=== PATIENT | female | born 1970 | race Caucasian/White ===

== ENCOUNTER 2018-07-15 11:09 | Inpatient (IN) | payer MEDICAID, OTHER ==
[~2018-07-15] VITALS: Ht 170.2 cm; Wt 84.4 kg
[2018-07-15] MEDS ORDERED: MULT-1203 PO (11:29)
[2018-07-15] MEDS ORDERED: TOPI25 PO (11:29)
[2018-07-15] MEDS ORDERED: LEVO75 PO (11:29)
[2018-07-15] MEDS ORDERED: FLUO-191 PO (11:29)
[2018-07-15] MEDS ORDERED: THIA100T67 PO (11:29)
[2018-07-15] MEDS ORDERED: FOLI1 PO (11:29)
[2018-07-15 12:16] LABS: BASOPHILS % (AUTO) 0.5 % (0.0-2.0); EOSINOPHILS % (AUTO) 1.8 % (1.0-6.0); HEMATOCRIT 40.3 % (36-46); HEMOGLOBIN 13.7 g/dL (12.0-16.0); LYMPHOCYTES # (AUTO) 0.9 K/uL (1.0-4.8); LYMPHOCYTES % (AUTO) 19.9 % (22.0-44.0); MEAN CORPUSCULAR HEMOGLOBIN 33.4 pg (26.0-34.0); MEAN CORPUSCULAR HGB CONC 33.9 G/dL (31.0-37.0); MEAN CORPUSCULAR VOLUME 98 fL (80-100); MONOCYTES # (AUTO) 0.4 K/uL (0.1-1.0); MONOCYTES % (AUTO) 7.9 % (2.0-9.0); NEUTROPHILS # (AUTO) 3.3 K/uL (1.8-7.7); NEUTROPHILS % (AUTO) 69.9 % (40.0-70.0); PLATELET COUNT (AUTO) 240 K/uL (150-450); RED CELL DISTRIBUTION WIDTH 13.5 % (11.5-14.5)
[2018-07-15 12:29] LABS: AMPHET/METH SCREEN,URINE NEGATIVE (NEGATIVE); BARBITURATE SCREEN, URINE NEGATIVE (NEGATIVE); BENZODIAZEPINES SCREEN,URINE NEGATIVE (NEGATIVE); CANNABINOID SCREEN,URINE NEGATIVE (NEGATIVE); COCAINE SCREEN,URINE NEGATIVE (NEGATIVE); METHADONE SCREEN, URINE NEGATIVE (NEGATIVE); OPIATE SCREEN,URINE NEGATIVE (NEGATIVE)
[2018-07-15 12:30] LABS: PHENCYCLIDINE SCREEN,URINE NEGATIVE (NEGATIVE)
[2018-07-15 12:36] LABS: ANION GAP 8 mmol/L (8-16); CALCIUM, TOTAL 8.4 mg/dL (8.8-10.5); CARBON DIOXIDE 24 mmol/L (22-29); CHLORIDE 107 mmol/L (98-107); CREATININE 0.66 mg/dL (0.60-1.30); GLOMERULAR FILTR. RATE CALC > 60 mL/min (>60); GLUCOSE,RANDOM 111 mg/dL (70-110); POTASSIUM 4.1 mmol/L (3.5-5.1); SODIUM SERUM 139 mmol/L (136-145); UREA NITROGEN, BLOOD 18 mg/dL (7-18)
[2018-07-15 12:38] LABS: ALANINE AMINOTRANSFERASE 27 U/L (12-78); ALBUMIN 3.2 g/dL (3.4-5.0); ALKALINE PHOSPHATASE 88 U/L (46-116); ASPARTATE AMINOTRANSFERASE 19 U/L (15-37); BILIRUBIN,TOTAL 0.2 mg/dL (0.1-1.0); TOTAL PROTEIN, SERUM 6.5 g/dL (6.4-8.2)
[2018-07-15] MEDS ORDERED: LORazepam 2 MG TABLET PO ONE (15:00)
[2018-07-15 20:22] VITALS: BP 131/88
[2018-07-15] MEDS ORDERED: PNEUMOCOCCAL VACCINE POLYVALENT 0.5 ML VIAL [PPSV23] IM ONE (20:45)
[2018-07-15] MEDS ORDERED: TOPIRAMATE 25 MG TABLET PO ONE (21:00)
[2018-07-15] MEDS ORDERED: CloNIDine HCL 0.1 MG TABLET PO PRN (21:15)
[2018-07-15] MEDS ORDERED: MAGNESIUM HYDROXIDE SUSPENSION 30 ML UDCUP PO PRN (21:15)
[2018-07-15] MEDS ORDERED: ONDANSETRON HCL 4 MG TABLET PO PRN (21:15)
[2018-07-15] MEDS ORDERED: PETROLATUM,WHITE 71 GM JELLY TP PRN (21:15)
[2018-07-15] MEDS ORDERED: MAG HYDROX/AL HYDROX/SIMETH ES 30 ML SUSPENSION UDCUP PO PRN (21:15)
[2018-07-15] MEDS ORDERED: ALBUTEROL SULFATE HFA 90 MCG/PUFF 8 GM INHALER IH PRN (21:15)
[2018-07-15] MEDS ORDERED: LOPERAMIDE HCL 2 MG CAPSULE PO PRN (21:15)
[2018-07-15] MEDS ORDERED: DOCUSATE SODIUM 100 MG CAPSULE PO PRN (21:15)
[2018-07-15] MEDS ORDERED: GuaiFENesin/D-METHORPHAN [SUGAR-FREE] 200-20MG/10 ML SYRUP UDCUP PO PRN (21:15)
[2018-07-15] MEDS ORDERED: ACETAMINOPHEN 325 MG TABLET PO PRN (21:15)
[2018-07-15 21:25] VITALS: BP 130/89
[2018-07-15] MEDS: IBUPROFEN 400 MG TABLET PO PRN (21:25)
[2018-07-15] MEDS ORDERED: BACITRACIN 28.4 GM OINTMENT TP PRN (22:00)
[2018-07-16 02:24] VITALS: BP 116/82
[2018-07-16] MEDS: LEVOTHYROXINE SODIUM 75 MCG TABLET PO SCH (06:32)
[2018-07-16 08:37] VITALS: BP 135/81
[2018-07-16] MEDS ORDERED: TOPIRAMATE 100 MG TABLET PO SCH (09:00)
[2018-07-16 09:19] LABS: BASOPHILS % (AUTO) 0.7 % (0.0-2.0); EOSINOPHILS % (AUTO) 3.5 % (1.0-6.0); HEMATOCRIT 42.1 % (36-46); HEMOGLOBIN 14.3 g/dL (12.0-16.0); LYMPHOCYTES # (AUTO) 1.3 K/uL (1.0-4.8); LYMPHOCYTES % (AUTO) 27.7 % (22.0-44.0); MEAN CORPUSCULAR HEMOGLOBIN 33.7 pg (26.0-34.0); MEAN CORPUSCULAR VOLUME 99 fL (80-100); MONOCYTES # (AUTO) 0.4 K/uL (0.1-1.0); MONOCYTES % (AUTO) 9.5 % (2.0-9.0); NEUTROPHILS # (AUTO) 2.7 K/uL (1.8-7.7); NEUTROPHILS % (AUTO) 58.6 % (40.0-70.0); PLATELET COUNT (AUTO) 264 K/uL (150-450); RED BLOOD CELL COUNT(AUTO) 4.26 MIL/uL (4.00-5.20); RED CELL DISTRIBUTION WIDTH 13.6 % (11.5-14.5)
[2018-07-16 09:26] LABS: HEMOGLOBIN A1C 5.4 % (4.5-6.2)
[2018-07-16 09:32] LABS: ALANINE AMINOTRANSFERASE 32 U/L (12-78); ALBUMIN 3.4 g/dL (3.4-5.0); ALKALINE PHOSPHATASE 98 U/L (46-116); ANION GAP 8 mmol/L (8-16); ASPARTATE AMINOTRANSFERASE 27 U/L (15-37); BILIRUBIN,TOTAL 0.2 mg/dL (0.1-1.0); CALCIUM, TOTAL 8.6 mg/dL (8.8-10.5); CARBON DIOXIDE 25 mmol/L (22-29); CHLORIDE 107 mmol/L (98-107); CHOL/HDL RATIO 1.9 (3.9-5.7); CHOLESTEROL 206 mg/dL (131-200); CREATININE 0.72 mg/dL (0.60-1.30); GLOMERULAR FILTR. RATE CALC > 60 mL/min (>60); GLUCOSE,RANDOM 98 mg/dL (70-110); HDL CHOLESTEROL 107 mg/dL (40-60); LDL CHOL (CALC.) 86 mg/dL (0-130); POTASSIUM 4.1 mmol/L (3.5-5.1); SODIUM SERUM 140 mmol/L (136-145); TRIGLYCERIDES 63 mg/dL (15-150); UREA NITROGEN, BLOOD 21 mg/dL (7-18)
[2018-07-16] MEDS: MULTIVITAMINS WITH MINERALS, THERAPEUTIC TABLET PO SCH (09:51)
[2018-07-16 17:46] VITALS: BP 133/92
[2018-07-16] MEDS: IBUPROFEN 400 MG TABLET PO PRN (17:59)
[2018-07-16] MEDS: TraZODone HCL 50 MG TABLET PO SCH (20:39)
[2018-07-17 01:13] VITALS: BP 126/73
[2018-07-17] MEDS: LEVOTHYROXINE SODIUM 75 MCG TABLET PO SCH (07:04)
[2018-07-17 08:42] VITALS: BP 130/90
[2018-07-17] MEDS: DIVALPROEX SODIUM 500 MG DR TABLET PO SCH ×2 (09:29→16:34)
[2018-07-17] MEDS: TOPIRAMATE 25 MG TABLET PO SCH (09:29)
[2018-07-17] MEDS: MULTIVITAMINS WITH MINERALS, THERAPEUTIC TABLET PO SCH (09:29)
[2018-07-17] MEDS: FLUoxetine HCL 20 MG CAPSULE PO SCH (09:29)
[2018-07-17] MEDS: GABAPENTIN 300 MG CAPSULE PO PRN ×2 (11:15→16:36)
[2018-07-17 16:36] VITALS: BP 139/94
[2018-07-17 17:31] VITALS: BP 139/94
[2018-07-17] MEDS: TraZODone HCL 50 MG TABLET PO SCH (20:18)
[2018-07-18 02:00] VITALS: BP 119/87
[2018-07-18] MEDS: GABAPENTIN 300 MG CAPSULE PO PRN ×2 (06:03→13:57)
[2018-07-18] MEDS: LEVOTHYROXINE SODIUM 75 MCG TABLET PO SCH (06:03)
[2018-07-18] MEDS: TOPIRAMATE 25 MG TABLET PO SCH (08:22)
[2018-07-18] MEDS: MULTIVITAMINS WITH MINERALS, THERAPEUTIC TABLET PO SCH (08:22)
[2018-07-18] MEDS: FLUoxetine HCL 20 MG CAPSULE PO SCH (08:22)
[2018-07-18] MEDS: DIVALPROEX SODIUM 500 MG DR TABLET PO SCH ×2 (08:22→16:00)
[2018-07-18 09:07] VITALS: BP 128/83
[2018-07-18 13:58] VITALS: BP 131/88
[2018-07-18 16:12] VITALS: BP 132/84
[2018-07-18] MEDS: TraZODone HCL 50 MG TABLET PO SCH (21:21)
[2018-07-19] VITALS: BP 115/75
[2018-07-19 05:30] VITALS: BP 120/86
[2018-07-19] MEDS: GABAPENTIN 300 MG CAPSULE PO PRN ×2 (05:32→13:21)
[2018-07-19] MEDS: LEVOTHYROXINE SODIUM 75 MCG TABLET PO SCH (06:52)
[2018-07-19 08:16] VITALS: BP 130/81
[2018-07-19] MEDS: DIVALPROEX SODIUM 500 MG DR TABLET PO SCH ×2 (09:52→16:27)
[2018-07-19] MEDS: FLUoxetine HCL 20 MG CAPSULE PO SCH (09:52)
[2018-07-19] MEDS: MULTIVITAMINS WITH MINERALS, THERAPEUTIC TABLET PO SCH (09:52)
[2018-07-19] MEDS: TOPIRAMATE 25 MG TABLET PO SCH (09:52)
[2018-07-19 11:14] VITALS: BP 128/78
[2018-07-19] MEDS: IBUPROFEN 400 MG TABLET PO PRN ×2 (11:14→21:11)
[2018-07-19 13:21] VITALS: BP 125/74
[2018-07-19 16:10] VITALS: BP 132/90
[2018-07-19] MEDS ORDERED: TOPIRAMATE 25 MG TABLET PO ONE (16:15)
[2018-07-19] MEDS: TraZODone HCL 50 MG TABLET PO SCH (20:05)
[2018-07-20 05:41] VITALS: BP 130/86
[2018-07-20] MEDS: IBUPROFEN 400 MG TABLET PO PRN (05:42)
[2018-07-20] MEDS: LEVOTHYROXINE SODIUM 75 MCG TABLET PO SCH (06:33)
[2018-07-20] MEDS: GABAPENTIN 300 MG CAPSULE PO PRN (06:58)
[2018-07-20 08:27] VITALS: BP 115/65
[2018-07-20] MEDS: MULTIVITAMINS WITH MINERALS, THERAPEUTIC TABLET PO SCH (08:35)
[2018-07-20] MEDS: FLUoxetine HCL 20 MG CAPSULE PO SCH (08:35)
[2018-07-20] MEDS: DIVALPROEX SODIUM 500 MG DR TABLET PO SCH (08:36)
[2018-07-20] MEDS ORDERED: TOPIRAMATE 100 MG TABLET PO SCH (09:00)
[2018-07-20] MEDS ORDERED: DIVA-78 PO (12:53)
[2018-07-20] MEDS ORDERED: TRAZ-219 PO (12:53)
== END 2018-07-20 13:05 | disposition home or self-care (01) | DRG 754 ==
LOC: EMS 11:11 → B2S 18:45
PROVIDERS: ADMIT Psychiatry & Neurology Psychiatry; ATTEND Psychiatry & Neurology Psychiatry
PROC: 3E0234Z Introduction of Serum, Toxoid and Vaccine into Muscle, Percutaneous Approach (ICD-10-PCS; principal; 2018-07-16)
DX: F32.9 Major depressive disorder, single episode, unspecified (principal); R45.851 Suicidal ideations; G40.909 Epilepsy, unspecified, not intractable, without status epilepticus; I10 Essential (primary) hypertension; E03.9 Hypothyroidism, unspecified; E78.5 Hyperlipidemia, unspecified; F10.10 Alcohol abuse, uncomplicated; Z98.1 Arthrodesis status; Z23 Encounter for immunization; Z71.41 Alcohol abuse counseling and surveillance of alcoholic; Z79.899 Other long term (current) drug therapy; Z88.5 Allergy status to narcotic agent
CPT/HCPCS: 83036; 84443; 87081; 90471; 99285; G0480

== ENCOUNTER 2018-12-08 19:16 | Inpatient (IN) | payer MEDICAID ==
[~2018-12-08] VITALS: Ht 172.7 cm; Wt 89.6 kg
[~2018-12-08 19:16] MED LIST: DIVA-78 PO; FLUO-191 PO; LEVO75 PO; MULT-1203 PO; TOPI25 PO; TRAZ-219 PO
[2018-12-08] MEDS ORDERED: ZOLPIDEM TARTRATE 10 MG TABLET PO PRN (21:00)
[2018-12-08] MEDS ORDERED: -PHARMACY VACCINE NOTE- MISC ONE (21:15)
[2018-12-08 22:00] VITALS: BP 133/93
[2018-12-08] MEDS ORDERED: MAGNESIUM HYDROXIDE SUSPENSION 30 ML UDCUP PO PRN (22:30)
[2018-12-08] MEDS ORDERED: PETROLATUM,WHITE 71 GM JELLY TP PRN (22:30)
[2018-12-08] MEDS ORDERED: GuaiFENesin/D-METHORPHAN [SUGAR-FREE] 200-20MG/10 ML SYRUP UDCUP PO PRN (22:30)
[2018-12-08] MEDS ORDERED: BACITRACIN 28.4 GM OINTMENT TP PRN (22:30)
[2018-12-08] MEDS ORDERED: CloNIDine HCL 0.1 MG TABLET PO PRN (22:30)
[2018-12-08] MEDS ORDERED: MAG HYDROX/AL HYDROX/SIMETH ES 30 ML SUSPENSION UDCUP PO PRN (22:30)
[2018-12-08] MEDS ORDERED: ONDANSETRON HCL 4 MG TABLET PO PRN (22:30)
[2018-12-08] MEDS ORDERED: DOCUSATE SODIUM 100 MG CAPSULE PO PRN (22:30)
[2018-12-08] MEDS ORDERED: LOPERAMIDE HCL 2 MG CAPSULE PO PRN (22:30)
[2018-12-09] VITALS (8 sets, daily range): BP systolic 114–139; BP diastolic 76–99
[2018-12-09] MEDS: LEVOTHYROXINE SODIUM 50 MCG TABLET PO SCH (06:23)
[2018-12-09 08:50] LABS: EOSINOPHILS % (AUTO) 2.5 % (1.0-6.0); HEMATOCRIT 38.5 % (36-46); HEMOGLOBIN 13.4 g/dL (12.0-16.0); LYMPHOCYTES % (AUTO) 41.7 % (22.0-44.0); MEAN CORPUSCULAR HEMOGLOBIN 32.5 pg (26.0-34.0); MEAN CORPUSCULAR HGB CONC 34.8 G/dL (31.0-37.0); MEAN CORPUSCULAR VOLUME 93 fL (80-100); MONOCYTES # (AUTO) 0.4 K/uL (0.1-1.0); MONOCYTES % (AUTO) 7.7 % (2.0-9.0); NEUTROPHILS # (AUTO) 2.3 K/uL (1.8-7.7); NEUTROPHILS % (AUTO) 47.1 % (40.0-70.0); PLATELET COUNT (AUTO) 254 K/uL (150-450); RED BLOOD CELL COUNT(AUTO) 4.13 MIL/uL (4.00-5.20); RED CELL DISTRIBUTION WIDTH 13.1 % (11.5-14.5)
[2018-12-09] MEDS: TOPIRAMATE 100 MG TABLET PO SCH (09:15)
[2018-12-09] MEDS: AmLODIPine BESYLATE 5 MG TABLET PO SCH (09:16)
[2018-12-09 09:49] LABS: ALANINE AMINOTRANSFERASE 27 U/L (12-78); ALBUMIN 3.1 g/dL (3.4-5.0); ALKALINE PHOSPHATASE 64 U/L (46-116); ANION GAP 7 mmol/L (8-16); ASPARTATE AMINOTRANSFERASE 13 U/L (15-37); BILIRUBIN,TOTAL 0.2 mg/dL (0.1-1.0); CALCIUM, TOTAL 8.6 mg/dL (8.8-10.5); CARBON DIOXIDE 25 mmol/L (22-29); CHLORIDE 108 mmol/L (98-107); CHOL/HDL RATIO 2.1 (3.9-5.7); CHOLESTEROL 138 mg/dL (131-200); CREATININE 0.75 mg/dL (0.60-1.30); FREE T4 (FREE THYROXINE) 0.99 ng/dL (0.76-1.46); GLOMERULAR FILTR. RATE CALC > 60 mL/min (>60); GLUCOSE,RANDOM 93 mg/dL (70-110); HDL CHOLESTEROL 65 mg/dL (40-60); LDL CHOL (CALC.) 52 mg/dL (0-130); POTASSIUM 3.8 mmol/L (3.5-5.1); SODIUM SERUM 140 mmol/L (136-145); THYROID STIMULATING HORMONE 1.41 uIU/mL (0.36-3.74); TOTAL PROTEIN, SERUM 5.9 g/dL (6.4-8.2); TRIGLYCERIDES 106 mg/dL (15-150); UREA NITROGEN, BLOOD 22 mg/dL (7-18)
[2018-12-09 10:26] LABS: AMPHET/METH SCREEN,URINE NEGATIVE (NEGATIVE); BARBITURATE SCREEN, URINE NEGATIVE (NEGATIVE); BENZODIAZEPINES SCREEN,URINE NEGATIVE (NEGATIVE); CANNABINOID SCREEN,URINE NEGATIVE (NEGATIVE); COCAINE SCREEN,URINE NEGATIVE (NEGATIVE); METHADONE SCREEN, URINE NEGATIVE (NEGATIVE); OPIATE SCREEN,URINE NEGATIVE (NEGATIVE)
[2018-12-09 10:27] LABS: PHENCYCLIDINE SCREEN,URINE NEGATIVE (NEGATIVE)
[2018-12-09 10:28] LABS: HEMOGLOBIN A1C 5.3 % (4.5-6.2)
[2018-12-09 10:56] LABS: APPEARANCE,URINE TURBID (CLEAR); BILIRUBIN,URINE NEGATIVE (NEGATIVE); GLUCOSE, URINE (UA) NEGATIVE (NEGATIVE); KETONES,URINE NEGATIVE (NEGATIVE); LEUKOCYTE ESTERASE ,URINE NEGATIVE (NEGATIVE); NITRATE,URINE NEGATIVE (NEGATIVE); OCCULT BLOOD,URINE NEGATIVE (NEGATIVE); PROTEIN,URINE NEGATIVE (NEGATIVE); UROBILINOGEN,URINE 0.2 mg/dL (<=1.0)
[2018-12-09] MEDS: IBUPROFEN 400 MG TABLET PO PRN (16:22)
[2018-12-09] MEDS ORDERED: LORazepam 2 MG TABLET PO PRN (18:00)
[2018-12-09] MEDS: QUEtiapine FUMARATE 100 MG TABLET PO SCH (20:39)
[2018-12-10] VITALS (8 sets, daily range): BP systolic 117–132; BP diastolic 70–87
[2018-12-10] MEDS: LEVOTHYROXINE SODIUM 50 MCG TABLET PO SCH (06:45)
[2018-12-10] MEDS ORDERED: LORazepam 2 MG TABLET PO PRN (07:00)
[2018-12-10] MEDS: LORazepam 2 MG TABLET PO SCH ×4 (09:18→20:33)
[2018-12-10] MEDS: TOPIRAMATE 100 MG TABLET PO SCH (09:18)
[2018-12-10] MEDS: FLUoxetine HCL 20 MG CAPSULE PO SCH (09:18)
[2018-12-10] MEDS: AmLODIPine BESYLATE 5 MG TABLET PO SCH (09:18)
[2018-12-10] MEDS: QUEtiapine FUMARATE 100 MG TABLET PO SCH (20:34)
[2018-12-11] VITALS: BP 116/82
[2018-12-11] MEDS: LEVOTHYROXINE SODIUM 50 MCG TABLET PO SCH (06:30)
[2018-12-11 08:01] VITALS: BP 125/91
[2018-12-11 08:40] VITALS: BP 129/90
[2018-12-11] MEDS: TOPIRAMATE 100 MG TABLET PO SCH (08:40)
[2018-12-11] MEDS: AmLODIPine BESYLATE 5 MG TABLET PO SCH (08:40)
[2018-12-11] MEDS: FLUoxetine HCL 20 MG CAPSULE PO SCH (08:41)
[2018-12-11] MEDS: LORazepam 2 MG TABLET PO SCH ×4 (08:41→21:04)
[2018-12-11 16:00] VITALS: BP 116/81
[2018-12-11 16:23] VITALS: BP 116/81
[2018-12-11] MEDS: IBUPROFEN 400 MG TABLET PO PRN (16:48)
[2018-12-11] MEDS: HALOPERIDOL 5 MG TABLET PO PRN (18:34)
[2018-12-11] MEDS: QUEtiapine FUMARATE 100 MG TABLET PO SCH (21:00)
[2018-12-12] MEDS: LORazepam 2 MG TABLET PO PRN (04:53)
[2018-12-12 05:30] VITALS: BP 135/92
[2018-12-12 05:37] VITALS: BP 135/92
[2018-12-12] MEDS: LEVOTHYROXINE SODIUM 50 MCG TABLET PO SCH (06:49)
[2018-12-12] MEDS ORDERED: LORazepam 1 MG TABLET PO PRN (07:00)
[2018-12-12] MEDS: AmLODIPine BESYLATE 5 MG TABLET PO SCH (08:30)
[2018-12-12] MEDS: LORazepam 1 MG TABLET PO SCH ×4 (08:30→20:23)
[2018-12-12] MEDS: TOPIRAMATE 100 MG TABLET PO SCH (08:30)
[2018-12-12] MEDS: FLUoxetine HCL 20 MG CAPSULE PO SCH (08:30)
[2018-12-12 09:45] VITALS: BP 127/82
[2018-12-12 09:50] VITALS: BP 127/82
[2018-12-12 10:35] VITALS: BP 117/84
[2018-12-12] MEDS: IBUPROFEN 400 MG TABLET PO PRN (10:38)
[2018-12-12 16:11] VITALS: BP 117/71
[2018-12-12] MEDS: QUEtiapine FUMARATE 100 MG TABLET PO SCH (20:23)
[2018-12-13 00:59] VITALS: BP 110/63
[2018-12-13] MEDS: LEVOTHYROXINE SODIUM 50 MCG TABLET PO SCH (06:26)
[2018-12-13] MEDS: TOPIRAMATE 100 MG TABLET PO SCH (08:34)
[2018-12-13] MEDS: AmLODIPine BESYLATE 5 MG TABLET PO SCH (08:34)
[2018-12-13] MEDS: FLUoxetine HCL 20 MG CAPSULE PO SCH (08:35)
[2018-12-13 08:39] VITALS: BP 137/77
[2018-12-13] MEDS: HALOPERIDOL 5 MG TABLET PO PRN (08:45)
[2018-12-13] MEDS: LORazepam 1 MG TABLET PO PRN ×2 (08:45→13:23)
[2018-12-13 13:20] VITALS: BP 122/86
[2018-12-13] MEDS: IBUPROFEN 400 MG TABLET PO PRN (13:22)
[2018-12-13 18:58] VITALS: BP 136/83
[2018-12-13 20:13] VITALS: BP 136/83
[2018-12-13] MEDS: QUEtiapine FUMARATE 100 MG TABLET PO SCH (20:26)
[2018-12-14 01:04] VITALS: BP 113/77
[2018-12-14 03:00] VITALS: BP 113/77
[2018-12-14] MEDS: LEVOTHYROXINE SODIUM 50 MCG TABLET PO SCH (06:03)
[2018-12-14 09:04] VITALS: BP 132/65
[2018-12-14] MEDS: AmLODIPine BESYLATE 5 MG TABLET PO SCH (09:19)
[2018-12-14] MEDS: FLUoxetine HCL 20 MG CAPSULE PO SCH (09:19)
[2018-12-14] MEDS: TOPIRAMATE 100 MG TABLET PO SCH (09:19)
[2018-12-14] MEDS: IBUPROFEN 400 MG TABLET PO PRN ×2 (09:51→19:48)
[2018-12-14] MEDS: LORazepam 2 MG TABLET PO PRN ×2 (09:51→19:47)
[2018-12-14 19:47] VITALS: BP 136/89
[2018-12-14] MEDS: QUEtiapine FUMARATE 200 MG TABLET PO SCH (20:03)
[2018-12-15 06:15] VITALS: BP 126/80
[2018-12-15] MEDS: LEVOTHYROXINE SODIUM 50 MCG TABLET PO SCH (06:38)
[2018-12-15] MEDS: LORazepam 2 MG TABLET PO PRN ×3 (08:44→18:42)
[2018-12-15] MEDS: FLUoxetine HCL 20 MG CAPSULE PO SCH (09:15)
[2018-12-15] MEDS: AmLODIPine BESYLATE 5 MG TABLET PO SCH (09:15)
[2018-12-15] MEDS: QUEtiapine FUMARATE 200 MG TABLET PO SCH ×2 (09:16→20:41)
[2018-12-15] MEDS: TOPIRAMATE 100 MG TABLET PO SCH (09:19)
[2018-12-15] MEDS ORDERED: DiphenhydrAMINE HCL 25 MG CAPSULE PO ONE (10:00)
[2018-12-15 10:10] VITALS: BP 105/67
[2018-12-15 16:26] VITALS: BP 121/68
[2018-12-15] MEDS: IBUPROFEN 400 MG TABLET PO PRN (18:42)
[2018-12-15] MEDS: HALOPERIDOL 5 MG TABLET PO PRN (22:55)
[2018-12-16 00:27] VITALS: BP 106/68
[2018-12-16] MEDS: LEVOTHYROXINE SODIUM 50 MCG TABLET PO SCH (06:45)
[2018-12-16 09:00] VITALS: BP 105/65
[2018-12-16] MEDS: FLUoxetine HCL 20 MG CAPSULE PO SCH (09:21)
[2018-12-16] MEDS: AmLODIPine BESYLATE 5 MG TABLET PO SCH (09:21)
[2018-12-16] MEDS: QUEtiapine FUMARATE 200 MG TABLET PO SCH ×2 (09:21→20:20)
[2018-12-16] MEDS: TOPIRAMATE 100 MG TABLET PO SCH (09:21)
[2018-12-16] MEDS: LORazepam 2 MG TABLET PO PRN (13:20)
[2018-12-16 16:13] VITALS: BP 106/68
[2018-12-17 01:25] VITALS: BP 110/78
[2018-12-17] MEDS: LEVOTHYROXINE SODIUM 50 MCG TABLET PO SCH (06:43)
[2018-12-17 06:48] VITALS: BP 116/67
[2018-12-17] MEDS: LORazepam 2 MG TABLET PO PRN ×3 (06:51→16:29)
[2018-12-17] MEDS: IBUPROFEN 400 MG TABLET PO PRN ×2 (06:51→16:17)
[2018-12-17] MEDS: AmLODIPine BESYLATE 5 MG TABLET PO SCH (09:00)
[2018-12-17 09:11] VITALS: BP 109/67
[2018-12-17] MEDS: TOPIRAMATE 100 MG TABLET PO SCH (09:17)
[2018-12-17] MEDS: QUEtiapine FUMARATE 200 MG TABLET PO SCH ×2 (09:17→20:04)
[2018-12-17] MEDS: FLUoxetine HCL 20 MG CAPSULE PO SCH (09:18)
[2018-12-17 16:12] VITALS: BP 119/64
[2018-12-18] VITALS (7 sets, daily range): BP systolic 107–124; BP diastolic 73–90
[2018-12-18] MEDS: LORazepam 2 MG TABLET PO PRN ×3 (04:37→18:07)
[2018-12-18] MEDS: IBUPROFEN 400 MG TABLET PO PRN ×3 (04:37→22:46)
[2018-12-18] MEDS: LEVOTHYROXINE SODIUM 50 MCG TABLET PO SCH (06:01)
[2018-12-18] MEDS: FLUoxetine HCL 20 MG CAPSULE PO SCH (08:40)
[2018-12-18] MEDS: TOPIRAMATE 100 MG TABLET PO SCH (08:40)
[2018-12-18] MEDS: AmLODIPine BESYLATE 5 MG TABLET PO SCH (08:40)
[2018-12-18] MEDS: QUEtiapine FUMARATE 200 MG TABLET PO SCH ×2 (08:40→20:01)
[2018-12-18] MEDS: ACETAMINOPHEN 325 MG TABLET PO PRN (18:07)
[2018-12-18] MEDS ORDERED: ZOLPIDEM TARTRATE 10 MG TABLET PO PRN (22:00)
[2018-12-19 00:57] VITALS: BP 103/64
[2018-12-19 06:02] VITALS: BP 116/65
[2018-12-19] MEDS: LORazepam 2 MG TABLET PO PRN ×4 (06:25→20:22)
[2018-12-19] MEDS: ACETAMINOPHEN 325 MG TABLET PO PRN (06:26)
[2018-12-19] MEDS: LEVOTHYROXINE SODIUM 50 MCG TABLET PO SCH (06:42)
[2018-12-19 08:46] VITALS: BP 117/76
[2018-12-19] MEDS: AmLODIPine BESYLATE 5 MG TABLET PO SCH (08:55)
[2018-12-19] MEDS: TOPIRAMATE 100 MG TABLET PO SCH (08:55)
[2018-12-19] MEDS: FLUoxetine HCL 20 MG CAPSULE PO SCH (08:55)
[2018-12-19] MEDS: QUEtiapine FUMARATE 200 MG TABLET PO SCH ×2 (08:55→20:21)
[2018-12-19 12:02] VITALS: BP 110/71
[2018-12-19] MEDS: IBUPROFEN 400 MG TABLET PO PRN (12:03)
[2018-12-19] MEDS: HALOPERIDOL 5 MG TABLET PO PRN (14:28)
[2018-12-19 17:33] VITALS: BP 118/79
[2018-12-20 06:02] VITALS: BP 120/81
[2018-12-20] MEDS: LEVOTHYROXINE SODIUM 50 MCG TABLET PO SCH (06:45)
[2018-12-20 08:16] VITALS: BP 127/93
[2018-12-20] MEDS: AmLODIPine BESYLATE 5 MG TABLET PO SCH (08:31)
[2018-12-20] MEDS: TOPIRAMATE 100 MG TABLET PO SCH (08:31)
[2018-12-20] MEDS: QUEtiapine FUMARATE 200 MG TABLET PO SCH ×2 (08:32→20:13)
[2018-12-20] MEDS: FLUoxetine HCL 20 MG CAPSULE PO SCH (08:32)
[2018-12-20] MEDS: LORazepam 2 MG TABLET PO PRN ×2 (11:22→17:18)
[2018-12-20 12:58] VITALS: BP 110/73
[2018-12-20] MEDS: TraMADol HCL 50 MG TABLET PO PRN (12:59)
[2018-12-20 16:08] VITALS: BP 107/61
[2018-12-21 00:09] VITALS: BP 103/71
[2018-12-21] MEDS: TraMADol HCL 50 MG TABLET PO PRN ×2 (00:11→11:53)
[2018-12-21] MEDS: LORazepam 2 MG TABLET PO PRN ×2 (04:45→15:42)
[2018-12-21 06:32] VITALS: BP 116/77
[2018-12-21] MEDS: LEVOTHYROXINE SODIUM 50 MCG TABLET PO SCH ×2 (06:33→06:43)
[2018-12-21] MEDS: IBUPROFEN 400 MG TABLET PO PRN (06:34)
[2018-12-21 08:05] VITALS: BP 114/73
[2018-12-21] MEDS: TOPIRAMATE 100 MG TABLET PO SCH (08:25)
[2018-12-21] MEDS: FLUoxetine HCL 20 MG CAPSULE PO SCH (08:25)
[2018-12-21] MEDS: QUEtiapine FUMARATE 200 MG TABLET PO SCH ×3 (08:25→21:00)
[2018-12-21] MEDS: AmLODIPine BESYLATE 5 MG TABLET PO SCH (08:25)
[2018-12-21 16:05] VITALS: BP 108/69
[2018-12-21 18:11] VITALS: BP 137/93
[2018-12-21 22:56] VITALS: BP 140/92
[2018-12-21] MEDS ORDERED: BACLOFEN 10 MG TABLET PO PRN (23:15)
[2018-12-22] VITALS (7 sets, daily range): BP systolic 107–126; BP diastolic 64–88
[2018-12-22] MEDS: LEVOTHYROXINE SODIUM 50 MCG TABLET PO SCH (06:47)
[2018-12-22] MEDS: TraMADol HCL 50 MG TABLET PO PRN ×2 (06:47→14:49)
[2018-12-22] MEDS: FLUoxetine HCL 20 MG CAPSULE PO SCH (08:12)
[2018-12-22] MEDS: TOPIRAMATE 100 MG TABLET PO SCH (08:12)
[2018-12-22] MEDS: QUEtiapine FUMARATE 200 MG TABLET PO SCH (08:12)
[2018-12-22] MEDS: LORazepam 2 MG TABLET PO PRN (08:26)
[2018-12-22] MEDS: AmLODIPine BESYLATE 5 MG TABLET PO SCH (10:10)
[2018-12-22] MEDS: IBUPROFEN 400 MG TABLET PO PRN (12:07)
[2018-12-22] MEDS ORDERED: AMLO-511 PO (16:13)
[2018-12-22] MEDS ORDERED: FLUO-191 PO (16:13)
[2018-12-22] MEDS ORDERED: LEVO50TA11 PO (16:13)
[2018-12-22] MEDS ORDERED: QUET200T PO (16:13)
== END 2018-12-22 16:55 | disposition home or self-care (01) | DRG 751 ==
LOC: B2S 20:55
PROVIDERS: ADMIT Psychiatry & Neurology Psychiatry; ATTEND Psychiatry & Neurology Psychiatry
DX: F33.3 Major depressive disorder, recurrent, severe with psychotic symptoms (principal); R45.851 Suicidal ideations; K92.2 Gastrointestinal hemorrhage, unspecified; G40.909 Epilepsy, unspecified, not intractable, without status epilepticus; E03.9 Hypothyroidism, unspecified; F41.9 Anxiety disorder, unspecified; E78.5 Hyperlipidemia, unspecified; I10 Essential (primary) hypertension; F10.20 Alcohol dependence, uncomplicated; F60.3 Borderline personality disorder; F19.90 Other psychoactive substance use, unspecified, uncomplicated; Z87.820 Personal history of traumatic brain injury; Z91.19 Patient's noncompliance with other medical treatment and regimen; Z91.5 Personal history of self-harm; Z98.1 Arthrodesis status; Z88.5 Allergy status to narcotic agent; Z71.51 Drug abuse counseling and surveillance of drug abuser; Z59.0 Homelessness; Z71.41 Alcohol abuse counseling and surveillance of alcoholic; Y90.9 Presence of alcohol in blood, level not specified
CPT/HCPCS: 80307; 83036; 84439; 84443

== ENCOUNTER 2018-12-11 22:10 | Emergency (ER) | payer MEDICAID, OTHER ==
[~2018-12-11] VITALS: Ht 172.7 cm; Wt 86.4 kg
[2018-12-11] MEDS ORDERED: PANTOPRAZOLE SODIUM 40 MG/VIAL IVP ONE (23:00)
[2018-12-11 23:06] LABS: BASOPHILS % (AUTO) 1.2 % (0.0-2.0); EOSINOPHILS % (AUTO) 1.6 % (1.0-6.0); HEMATOCRIT 43.3 % (36-46); HEMOGLOBIN 14.8 g/dL (12.0-16.0); LYMPHOCYTES % (AUTO) 27.4 % (22.0-44.0); MEAN CORPUSCULAR HEMOGLOBIN 31.9 pg (26.0-34.0); MEAN CORPUSCULAR HGB CONC 34.3 G/dL (31.0-37.0); MEAN CORPUSCULAR VOLUME 93 fL (80-100); MONOCYTES # (AUTO) 0.6 K/uL (0.1-1.0); MONOCYTES % (AUTO) 8.3 % (2.0-9.0); NEUTROPHILS # (AUTO) 4.6 K/uL (1.8-7.7); NEUTROPHILS % (AUTO) 61.5 % (40.0-70.0); PLATELET COUNT (AUTO) 316 K/uL (150-450); RED BLOOD CELL COUNT(AUTO) 4.66 MIL/uL (4.00-5.20); RED CELL DISTRIBUTION WIDTH 12.9 % (11.5-14.5)
[2018-12-11 23:14] LABS: ANION GAP 11 mmol/L (8-16); CALCIUM, TOTAL 8.9 mg/dL (8.8-10.5); CARBON DIOXIDE 21 mmol/L (22-29); CHLORIDE 106 mmol/L (98-107); CREATININE 0.81 mg/dL (0.60-1.30); GLOMERULAR FILTR. RATE CALC > 60 mL/min (>60); GLUCOSE,RANDOM 100 mg/dL (70-110); SODIUM SERUM 138 mmol/L (136-145); UREA NITROGEN, BLOOD 22 mg/dL (7-18)
[2018-12-11] MEDS ORDERED: SODIUM CHLORIDE 0.9% 1,000 ML IV ONE (23:15)
[2018-12-11] MEDS ORDERED: ONDANSETRON HCL 4 MG/2 ML VIAL IVP ONE (23:15)
[2018-12-11] MEDS ORDERED: MORPHINE SULFATE 4 MG/ML SYRINGE IVP ONE (23:15)
[2018-12-11] MEDS ORDERED: SODIUM CHLORIDE 0.9% 100 ML ONE (23:19)
[2018-12-11] MEDS ORDERED: IOVERSOL 320 MG/ML 100 ML VIAL ONE (23:19)
[2018-12-11 23:23] LABS: LACTIC ACID 0.7 mmol/L (0.4-2.0)
[2018-12-11 23:28] LABS: ALANINE AMINOTRANSFERASE 19 U/L (12-78); ALBUMIN 3.5 g/dL (3.4-5.0); ALKALINE PHOSPHATASE 66 U/L (46-116); ASPARTATE AMINOTRANSFERASE 13 U/L (15-37); HCG,QUANTITATIVE < 1 mIU/mL (0-6); TOTAL PROTEIN, SERUM 6.7 g/dL (6.4-8.2)
[2018-12-11 23:39] LABS: BILIRUBIN,TOTAL 0.1 mg/dL (0.1-1.0)
[2018-12-12 01:28] VITALS: BP 141/77
== END 2018-12-12 04:27 | disposition home or self-care (01) ==
LOC: EMS 22:11
DX: K92.2 Gastrointestinal hemorrhage, unspecified (principal); I10 Essential (primary) hypertension; I25.2 Old myocardial infarction; Z88.5 Allergy status to narcotic agent
CPT/HCPCS: 36415; 74177; 80053; 83605; 84702; 85025; 85610; 86850; 86900; 86901; 93005; 96361; 96374; 96375; 99285; C9113; J2270; J2405; J7030; J7050; Q9967

== ENCOUNTER 2018-12-21 20:00 | Emergency (ER) | payer OTHER ==
[~2018-12-21] VITALS: Ht 172.7 cm; Wt 53.8 kg
[2018-12-21] MEDS ORDERED: BACLOFEN 10 MG TABLET PO ONE (21:00)
[2018-12-21] MEDS ORDERED: ACETAMINOPHEN 500 MG TABLET PO ONE (21:00)
[2018-12-21] MEDS ORDERED: KETOROLAC TROMETHAMINE 30 MG/ML VIAL IM ONE (21:00)
[2018-12-21 21:50] VITALS: BP 140/90
[2018-12-22] MEDS ORDERED: QUET200T PO (16:13)
[2018-12-22] MEDS ORDERED: FLUO-191 PO (16:13)
[2018-12-22] MEDS ORDERED: LEVO50TA11 PO (16:13)
[2018-12-22] MEDS ORDERED: AMLO-511 PO (16:13)
== END 2018-12-21 22:42 | disposition home or self-care (01) ==
LOC: EMS 20:02
DX: M54.5 Low back pain (principal); M54.2 Cervicalgia; I10 Essential (primary) hypertension; I25.2 Old myocardial infarction; Z88.5 Allergy status to narcotic agent
CPT/HCPCS: J1885

== ENCOUNTER 2019-02-01 20:03 | Inpatient (IN) | payer MEDICAID, OTHER ==
[~2019-02-01] VITALS: Ht 175.3 cm; Wt 89.8 kg
[~2019-02-01 20:03] MED LIST changes: +AMLO-511 PO; -DIVA-78 PO; +LEVO50TA11 PO; -LEVO75 PO; -MULT-1203 PO; +QUET200T PO; -TRAZ-219 PO
[2019-02-02] VITALS (10 sets, daily range): BP systolic 114–135; BP diastolic 75–85
[2019-02-02] MEDS ORDERED: HALOPERIDOL 5 MG TABLET PO PRN (00:15)
[2019-02-02] MEDS: ZOLPIDEM TARTRATE 10 MG TABLET PO PRN (01:31)
[2019-02-02] MEDS ORDERED: QUEtiapine FUMARATE 200 MG TABLET PO SCH ×2 (09:00→21:00)
[2019-02-02] MEDS ORDERED: TOPIRAMATE 100 MG TABLET PO SCH (09:00)
[2019-02-02] MEDS ORDERED: FLUoxetine HCL 20 MG CAPSULE PO SCH (09:00)
[2019-02-02] MEDS ORDERED: HydrOXYzine PAMOATE 50 MG CAPSULE PO PRN (13:15)
[2019-02-02] MEDS ORDERED: PROMETHAZINE HCL 25 MG TABLET PO PRN (13:15)
[2019-02-02] MEDS ORDERED: MAG HYDROX/AL HYDROX/SIMETH ES 30 ML SUSPENSION UDCUP PO PRN ×2 (13:15→14:00)
[2019-02-02] MEDS ORDERED: CYANOCOBALAMIN 1,000 MCG/ML VIAL IM ONE (13:15)
[2019-02-02] MEDS ORDERED: MAGNESIUM HYDROXIDE SUSPENSION 30 ML UDCUP PO PRN ×2 (13:15→14:00)
[2019-02-02] MEDS ORDERED: ACETAMINOPHEN 325 MG TABLET PO PRN ×2 (13:15→14:00)
[2019-02-02] MEDS ORDERED: LORazepam 2 MG TABLET PO PRN (13:15)
[2019-02-02] MEDS ORDERED: GuaiFENesin/D-METHORPHAN [SUGAR-FREE] 200-20MG/10 ML SYRUP UDCUP PO PRN (13:15)
[2019-02-02] MEDS ORDERED: TUBERCULIN, PURIFIED PROTEIN DERIVATIVE 5 TU/0.1 ML SYRINGE ID ONE (13:15)
[2019-02-02] MEDS ORDERED: LOPERAMIDE HCL 2 MG CAPSULE PO PRN ×2 (13:15→14:00)
[2019-02-02] MEDS ORDERED: CloNIDine HCL 0.1 MG TABLET PO PRN (14:00)
[2019-02-02] MEDS ORDERED: ONDANSETRON HCL 4 MG TABLET PO PRN (14:00)
[2019-02-02] MEDS ORDERED: BENZOCAINE/MENTHOL LOZENGE MM PRN (14:00)
[2019-02-02] MEDS ORDERED: PETROLATUM,WHITE 71 GM JELLY TP PRN (14:00)
[2019-02-02] MEDS ORDERED: BACITRACIN 28.4 GM OINTMENT TP PRN (14:00)
[2019-02-02] MEDS ORDERED: ALBUTEROL SULFATE HFA 90 MCG/PUFF 8 GM INHALER IH PRN (14:00)
[2019-02-02] MEDS ORDERED: DIAZEPAM 10 MG TABLET PO PRN (15:00)
[2019-02-02] MEDS: THIAMINE HCL 100 MG TABLET PO SCH (16:45)
[2019-02-02] MEDS: MetroNIDAZOLE 500 MG TABLET PO SCH (16:45)
[2019-02-02] MEDS: TOPIRAMATE 100 MG TABLET PO SCH (16:46)
[2019-02-02] MEDS: GABAPENTIN 300 MG CAPSULE PO SCH ×2 (16:47→21:04)
[2019-02-03] VITALS (8 sets, daily range): BP systolic 111–122; BP diastolic 75–81
[2019-02-03] MEDS: IBUPROFEN 600 MG TABLET PO PRN (06:27)
[2019-02-03] MEDS ORDERED: DIAZEPAM 10 MG TABLET PO PRN (07:00)
[2019-02-03] MEDS ORDERED: LORazepam 2 MG TABLET PO PRN (07:00)
[2019-02-03] MEDS: LEVOTHYROXINE SODIUM 50 MCG TABLET PO SCH (07:24)
[2019-02-03 08:15] LABS: BASOPHILS % (AUTO) 0.6 % (0.0-2.0); EOSINOPHILS % (AUTO) 4.1 % (1.0-6.0); HEMATOCRIT 38.1 % (36-46); HEMOGLOBIN 13.1 g/dL (12.0-16.0); LYMPHOCYTES # (AUTO) 1.7 K/uL (1.0-4.8); LYMPHOCYTES % (AUTO) 30.3 % (22.0-44.0); MEAN CORPUSCULAR HEMOGLOBIN 33.1 pg (26.0-34.0); MEAN CORPUSCULAR HGB CONC 34.5 G/dL (31.0-37.0); MEAN CORPUSCULAR VOLUME 96 fL (80-100); MONOCYTES # (AUTO) 0.4 K/uL (0.1-1.0); MONOCYTES % (AUTO) 7.2 % (2.0-9.0); NEUTROPHILS # (AUTO) 3.2 K/uL (1.8-7.7); NEUTROPHILS % (AUTO) 57.8 % (40.0-70.0); PLATELET COUNT (AUTO) 247 K/uL (150-450); RED BLOOD CELL COUNT(AUTO) 3.97 MIL/uL (4.00-5.20); RED CELL DISTRIBUTION WIDTH 13.6 % (11.5-14.5)
[2019-02-03 08:42] LABS: ALANINE AMINOTRANSFERASE 15 U/L (12-78); ALBUMIN 2.9 g/dL (3.4-5.0); ALKALINE PHOSPHATASE 56 U/L (46-116); ANION GAP 10 mmol/L (8-16); ASPARTATE AMINOTRANSFERASE 12 U/L (15-37); BILIRUBIN,TOTAL 0.3 mg/dL (0.1-1.0); CALCIUM, TOTAL 8.5 mg/dL (8.8-10.5); CARBON DIOXIDE 22 mmol/L (22-29); CHLORIDE 107 mmol/L (98-107); CHOL/HDL RATIO 2.6 (3.9-5.7); CHOLESTEROL 136 mg/dL (131-200); CREATININE 0.76 mg/dL (0.60-1.30); FREE T4 (FREE THYROXINE) 0.88 ng/dL (0.76-1.46); GLOMERULAR FILTR. RATE CALC > 60 mL/min (>60); GLUCOSE,RANDOM 82 mg/dL (70-110); HCG,QUANTITATIVE < 1 mIU/mL (0-6); HDL CHOLESTEROL 53 mg/dL (40-60); LDL CHOL (CALC.) 59 mg/dL (0-130); POTASSIUM 3.9 mmol/L (3.5-5.1); SODIUM SERUM 139 mmol/L (136-145); THYROID STIMULATING HORMONE 0.64 uIU/mL (0.36-3.74); TOTAL PROTEIN, SERUM 5.8 g/dL (6.4-8.2); TRIGLYCERIDES 120 mg/dL (15-150); UREA NITROGEN, BLOOD 21 mg/dL (7-18)
[2019-02-03] MEDS: NALTREXONE HCL 50 MG TABLET PO SCH (08:54)
[2019-02-03] MEDS: GABAPENTIN 300 MG CAPSULE PO SCH ×4 (08:55→20:24)
[2019-02-03] MEDS: FOLIC ACID 1 MG TABLET PO SCH (08:55)
[2019-02-03] MEDS: FLUoxetine HCL 20 MG CAPSULE PO SCH (08:55)
[2019-02-03] MEDS: MULTIVITAMINS WITH MINERALS, THERAPEUTIC TABLET PO SCH (08:55)
[2019-02-03] MEDS: OMEPRAZOLE 20 MG CAPSULE PO SCH (08:55)
[2019-02-03] MEDS: THIAMINE HCL 100 MG TABLET PO SCH ×2 (08:55→17:22)
[2019-02-03] MEDS: TOPIRAMATE 100 MG TABLET PO SCH ×2 (08:55→17:21)
[2019-02-03] MEDS: DIAZEPAM 10 MG TABLET PO SCH ×4 (08:55→20:24)
[2019-02-03] MEDS: DOCUSATE SODIUM 100 MG CAPSULE PO SCH (08:56)
[2019-02-03] MEDS: MetroNIDAZOLE 500 MG TABLET PO SCH ×2 (08:56→17:24)
[2019-02-03] MEDS ORDERED: LORazepam 2 MG TABLET PO SCH (09:00)
[2019-02-03] MEDS: QUEtiapine FUMARATE 300 MG TABLET PO SCH (20:24)
[2019-02-04 00:20] VITALS: BP 108/62
[2019-02-04] MEDS: LEVOTHYROXINE SODIUM 50 MCG TABLET PO SCH (06:06)
[2019-02-04 08:40] VITALS: BP 104/69
[2019-02-04] MEDS: NALTREXONE HCL 50 MG TABLET PO SCH (09:00)
[2019-02-04] MEDS: FOLIC ACID 1 MG TABLET PO SCH (09:00)
[2019-02-04] MEDS: MetroNIDAZOLE 500 MG TABLET PO SCH ×2 (09:00→17:00)
[2019-02-04] MEDS: FLUoxetine HCL 20 MG CAPSULE PO SCH (09:01)
[2019-02-04] MEDS: GABAPENTIN 300 MG CAPSULE PO SCH ×2 (09:01→12:37)
[2019-02-04] MEDS: TOPIRAMATE 100 MG TABLET PO SCH ×2 (09:01→17:00)
[2019-02-04] MEDS: MULTIVITAMINS WITH MINERALS, THERAPEUTIC TABLET PO SCH (09:01)
[2019-02-04] MEDS: DIAZEPAM 10 MG TABLET PO SCH ×4 (09:01→20:20)
[2019-02-04] MEDS: DOCUSATE SODIUM 100 MG CAPSULE PO SCH (09:01)
[2019-02-04] MEDS: OMEPRAZOLE 20 MG CAPSULE PO SCH (09:01)
[2019-02-04] MEDS: THIAMINE HCL 100 MG TABLET PO SCH ×2 (09:28→16:59)
[2019-02-04] MEDS: AmLODIPine BESYLATE 5 MG TABLET PO SCH (09:38)
[2019-02-04 16:12] VITALS: BP 105/80
[2019-02-04] MEDS: GABAPENTIN 400 MG CAPSULE PO SCH ×2 (16:59→20:20)
[2019-02-04] MEDS: QUEtiapine FUMARATE 300 MG TABLET PO SCH (20:20)
[2019-02-05 06:02] VITALS: BP 123/71
[2019-02-05] MEDS: LEVOTHYROXINE SODIUM 50 MCG TABLET PO SCH (06:38)
[2019-02-05] MEDS ORDERED: DIAZEPAM 5 MG TABLET PO PRN (07:00)
[2019-02-05] MEDS ORDERED: LORazepam 1 MG TABLET PO PRN (07:00)
[2019-02-05] MEDS ORDERED: LORazepam 1 MG TABLET PO SCH (09:00)
[2019-02-05 09:28] VITALS: BP 106/64
[2019-02-05] MEDS: GABAPENTIN 400 MG CAPSULE PO SCH ×4 (09:53→20:26)
[2019-02-05] MEDS: NALTREXONE HCL 50 MG TABLET PO SCH (09:53)
[2019-02-05] MEDS: THIAMINE HCL 100 MG TABLET PO SCH ×2 (09:53→17:06)
[2019-02-05] MEDS: TOPIRAMATE 100 MG TABLET PO SCH ×2 (09:53→17:06)
[2019-02-05] MEDS: DOCUSATE SODIUM 100 MG CAPSULE PO SCH (09:53)
[2019-02-05] MEDS: MetroNIDAZOLE 500 MG TABLET PO SCH ×2 (09:53→20:32)
[2019-02-05] MEDS: MULTIVITAMINS WITH MINERALS, THERAPEUTIC TABLET PO SCH (09:53)
[2019-02-05] MEDS: OMEPRAZOLE 20 MG CAPSULE PO SCH (09:53)
[2019-02-05] MEDS: FOLIC ACID 1 MG TABLET PO SCH (09:53)
[2019-02-05] MEDS: DIAZEPAM 5 MG TABLET PO SCH ×4 (09:54→20:26)
[2019-02-05] MEDS: AmLODIPine BESYLATE 5 MG TABLET PO SCH (09:54)
[2019-02-05] MEDS: FLUoxetine HCL 20 MG CAPSULE PO SCH (09:54)
[2019-02-05] MEDS ORDERED: LOPERAMIDE HCL 2 MG CAPSULE PO PRN (13:15)
[2019-02-05 17:06] VITALS: BP 110/67
[2019-02-05] MEDS: QUEtiapine FUMARATE 200 MG TABLET PO SCH (20:26)
[2019-02-06 00:43] VITALS: BP 121/68
[2019-02-06] MEDS: LEVOTHYROXINE SODIUM 50 MCG TABLET PO SCH (06:40)
[2019-02-06] MEDS ORDERED: LORazepam 1 MG TABLET PO PRN (07:00)
[2019-02-06] MEDS ORDERED: DIAZEPAM 5 MG TABLET PO PRN (07:00)
[2019-02-06 08:13] VITALS: BP 100/66
[2019-02-06] MEDS: DOCUSATE SODIUM 100 MG CAPSULE PO SCH (08:30)
[2019-02-06] MEDS: MetroNIDAZOLE 500 MG TABLET PO SCH ×2 (08:30→16:13)
[2019-02-06] MEDS: GABAPENTIN 400 MG CAPSULE PO SCH ×4 (08:31→20:33)
[2019-02-06] MEDS: FOLIC ACID 1 MG TABLET PO SCH (08:31)
[2019-02-06] MEDS: OMEPRAZOLE 20 MG CAPSULE PO SCH (08:32)
[2019-02-06] MEDS: MULTIVITAMINS WITH MINERALS, THERAPEUTIC TABLET PO SCH (08:32)
[2019-02-06] MEDS: FLUoxetine HCL 20 MG CAPSULE PO SCH (08:32)
[2019-02-06] MEDS: NALTREXONE HCL 50 MG TABLET PO SCH (08:32)
[2019-02-06] MEDS: THIAMINE HCL 100 MG TABLET PO SCH ×2 (08:33→16:14)
[2019-02-06] MEDS: TOPIRAMATE 100 MG TABLET PO SCH ×2 (08:33→16:13)
[2019-02-06] MEDS: AmLODIPine BESYLATE 5 MG TABLET PO SCH (09:22)
[2019-02-06 16:18] VITALS: BP 104/66
[2019-02-06] MEDS: QUEtiapine FUMARATE 200 MG TABLET PO SCH (20:33)
[2019-02-07 00:38] VITALS: BP 110/68
[2019-02-07] MEDS: LEVOTHYROXINE SODIUM 50 MCG TABLET PO SCH (06:35)
[2019-02-07 08:29] VITALS: BP 104/61
[2019-02-07] MEDS: AmLODIPine BESYLATE 5 MG TABLET PO SCH (09:03)
[2019-02-07] MEDS: THIAMINE HCL 100 MG TABLET PO SCH ×2 (09:03→16:12)
[2019-02-07] MEDS: FOLIC ACID 1 MG TABLET PO SCH (09:03)
[2019-02-07] MEDS: NALTREXONE HCL 50 MG TABLET PO SCH (09:03)
[2019-02-07] MEDS: DOCUSATE SODIUM 100 MG CAPSULE PO SCH (09:04)
[2019-02-07] MEDS: MULTIVITAMINS WITH MINERALS, THERAPEUTIC TABLET PO SCH (09:04)
[2019-02-07] MEDS: MetroNIDAZOLE 500 MG TABLET PO SCH ×2 (09:04→16:12)
[2019-02-07] MEDS: OMEPRAZOLE 20 MG CAPSULE PO SCH (09:04)
[2019-02-07] MEDS: TOPIRAMATE 100 MG TABLET PO SCH ×2 (09:04→16:12)
[2019-02-07] MEDS: FLUoxetine HCL 20 MG CAPSULE PO SCH (09:04)
[2019-02-07] MEDS: GABAPENTIN 400 MG CAPSULE PO SCH ×4 (09:04→20:10)
[2019-02-07] MEDS: IBUPROFEN 600 MG TABLET PO PRN (16:38)
[2019-02-07 16:40] VITALS: BP 108/63
[2019-02-07 16:58] VITALS: BP 122/89
[2019-02-07] MEDS: QUEtiapine FUMARATE 200 MG TABLET PO SCH (20:10)
[2019-02-08 01:04] VITALS: BP 108/62
[2019-02-08] MEDS: LEVOTHYROXINE SODIUM 50 MCG TABLET PO SCH (06:44)
[2019-02-08 08:33] VITALS: BP 112/71
[2019-02-08] MEDS: MULTIVITAMINS WITH MINERALS, THERAPEUTIC TABLET PO SCH (08:49)
[2019-02-08] MEDS: TOPIRAMATE 100 MG TABLET PO SCH ×2 (08:49→16:56)
[2019-02-08] MEDS: DOCUSATE SODIUM 100 MG CAPSULE PO SCH (08:49)
[2019-02-08] MEDS: OMEPRAZOLE 20 MG CAPSULE PO SCH (08:49)
[2019-02-08] MEDS: GABAPENTIN 400 MG CAPSULE PO SCH ×4 (08:49→20:25)
[2019-02-08] MEDS: FLUoxetine HCL 20 MG CAPSULE PO SCH (08:49)
[2019-02-08] MEDS: THIAMINE HCL 100 MG TABLET PO SCH ×2 (08:49→16:55)
[2019-02-08] MEDS: FOLIC ACID 1 MG TABLET PO SCH (08:50)
[2019-02-08] MEDS: NALTREXONE HCL 50 MG TABLET PO SCH (08:50)
[2019-02-08] MEDS: AmLODIPine BESYLATE 5 MG TABLET PO SCH (08:50)
[2019-02-08] MEDS: MetroNIDAZOLE 500 MG TABLET PO SCH ×2 (08:50→16:55)
[2019-02-08 16:28] VITALS: BP 98/60
[2019-02-08] MEDS: QUEtiapine FUMARATE 200 MG TABLET PO SCH (20:25)
[2019-02-09] MEDS: LEVOTHYROXINE SODIUM 50 MCG TABLET PO SCH (06:31)
[2019-02-09 08:28] VITALS: BP 103/66
[2019-02-09] MEDS: DOCUSATE SODIUM 100 MG CAPSULE PO SCH (08:38)
[2019-02-09] MEDS: FOLIC ACID 1 MG TABLET PO SCH (08:39)
[2019-02-09] MEDS: GABAPENTIN 400 MG CAPSULE PO SCH ×2 (08:39→13:08)
[2019-02-09] MEDS: AmLODIPine BESYLATE 5 MG TABLET PO SCH (08:39)
[2019-02-09] MEDS: OMEPRAZOLE 20 MG CAPSULE PO SCH (08:39)
[2019-02-09] MEDS: MetroNIDAZOLE 500 MG TABLET PO SCH ×2 (08:39→17:15)
[2019-02-09] MEDS: TOPIRAMATE 100 MG TABLET PO SCH ×2 (08:40→17:15)
[2019-02-09] MEDS: FLUoxetine HCL 20 MG CAPSULE PO SCH (08:40)
[2019-02-09] MEDS: MULTIVITAMINS WITH MINERALS, THERAPEUTIC TABLET PO SCH (08:40)
[2019-02-09] MEDS: NALTREXONE HCL 50 MG TABLET PO SCH (08:40)
[2019-02-09] MEDS: THIAMINE HCL 100 MG TABLET PO SCH ×2 (08:40→17:15)
[2019-02-09 16:02] VITALS: BP 102/62
[2019-02-09] MEDS: GABAPENTIN 300 MG CAPSULE PO SCH (17:15)
[2019-02-09] MEDS ORDERED: METHYL SALICYLATE/MENTHOL 85 GM CREAM TP PRN (20:45)
[2019-02-09] MEDS ORDERED: QUEtiapine FUMARATE 200 MG TABLET PO SCH (21:00)
[2019-02-10 01:30] VITALS: BP 105/62
[2019-02-10] MEDS: LEVOTHYROXINE SODIUM 50 MCG TABLET PO SCH (06:47)
[2019-02-10 08:18] VITALS: BP 118/71
[2019-02-10] MEDS: TOPIRAMATE 100 MG TABLET PO SCH ×2 (08:27→16:27)
[2019-02-10] MEDS: FLUoxetine HCL 20 MG CAPSULE PO SCH (08:27)
[2019-02-10] MEDS: NALTREXONE HCL 50 MG TABLET PO SCH (08:27)
[2019-02-10] MEDS: MetroNIDAZOLE 500 MG TABLET PO SCH (08:27)
[2019-02-10] MEDS: GABAPENTIN 300 MG CAPSULE PO SCH ×3 (08:27→16:26)
[2019-02-10] MEDS: AmLODIPine BESYLATE 5 MG TABLET PO SCH (08:27)
[2019-02-10] MEDS: MULTIVITAMINS WITH MINERALS, THERAPEUTIC TABLET PO SCH (08:27)
[2019-02-10] MEDS: DOCUSATE SODIUM 100 MG CAPSULE PO SCH (08:27)
[2019-02-10] MEDS: OMEPRAZOLE 20 MG CAPSULE PO SCH (08:28)
[2019-02-10] MEDS: FOLIC ACID 1 MG TABLET PO SCH (08:28)
[2019-02-10] MEDS: THIAMINE HCL 100 MG TABLET PO SCH ×2 (08:28→16:26)
[2019-02-10 10:57] VITALS: BP 96/69
[2019-02-10] MEDS: IBUPROFEN 600 MG TABLET PO PRN (11:04)
[2019-02-10 16:14] VITALS: BP 107/71
[2019-02-10] MEDS: QUEtiapine FUMARATE 200 MG TABLET PO SCH (20:27)
[2019-02-11 01:25] VITALS: BP 111/62
[2019-02-11] MEDS: LEVOTHYROXINE SODIUM 50 MCG TABLET PO SCH (06:20)
[2019-02-11] MEDS: OMEPRAZOLE 20 MG CAPSULE PO SCH (08:08)
[2019-02-11] MEDS: GABAPENTIN 300 MG CAPSULE PO SCH ×2 (08:08→13:00)
[2019-02-11] MEDS: AmLODIPine BESYLATE 5 MG TABLET PO SCH (08:08)
[2019-02-11] MEDS: THIAMINE HCL 100 MG TABLET PO SCH ×2 (08:09→16:24)
[2019-02-11] MEDS: MULTIVITAMINS WITH MINERALS, THERAPEUTIC TABLET PO SCH (08:09)
[2019-02-11] MEDS: NALTREXONE HCL 50 MG TABLET PO SCH (08:09)
[2019-02-11] MEDS: FOLIC ACID 1 MG TABLET PO SCH (08:09)
[2019-02-11] MEDS: FLUoxetine HCL 20 MG CAPSULE PO SCH (08:09)
[2019-02-11] MEDS: TOPIRAMATE 100 MG TABLET PO SCH ×2 (08:09→16:24)
[2019-02-11] MEDS: DOCUSATE SODIUM 100 MG CAPSULE PO SCH (08:09)
[2019-02-11 08:21] LABS: BAND NEUTROPHILS % (MANUAL) 0 % (0-5)
[2019-02-11 08:43] LABS: HEMATOCRIT 36.4 % (36-46); HEMOGLOBIN 12.5 g/dL (12.0-16.0); MEAN CORPUSCULAR HGB CONC 34.3 G/dL (31.0-37.0); MEAN CORPUSCULAR VOLUME 96 fL (80-100); PLATELET COUNT (AUTO) 208 K/uL (150-450); RED BLOOD CELL COUNT(AUTO) 3.79 MIL/uL (4.00-5.20); RED CELL DISTRIBUTION WIDTH 13.7 % (11.5-14.5)
[2019-02-11 09:13] VITALS: BP 115/77
[2019-02-11 09:14] LABS: ANION GAP 9 mmol/L (8-16); CALCIUM, TOTAL 8.5 mg/dL (8.8-10.5); CARBON DIOXIDE 24 mmol/L (22-29); CHLORIDE 107 mmol/L (98-107); CREATININE 0.76 mg/dL (0.60-1.30); GLOMERULAR FILTR. RATE CALC > 60 mL/min (>60); GLUCOSE,RANDOM 83 mg/dL (70-110); PHOSPHORUS 4.4 mg/dL (2.5-4.9); POTASSIUM 3.7 mmol/L (3.5-5.1); SODIUM SERUM 140 mmol/L (136-145); THYROID STIMULATING HORMONE 1.63 uIU/mL (0.36-3.74); UREA NITROGEN, BLOOD 22 mg/dL (7-18)
[2019-02-11 10:16] LABS: EOSINOPHILS % (MANUAL) 9 % (1-6); LYMPHOCYTES % (MANUAL) 32 % (22-44); MONOCYTES % (MANUAL) 10 % (2-9); SEGMENTED NEUTROPHILS % 49 % (40-70)
[2019-02-11 16:23] VITALS: BP 114/64
[2019-02-11] MEDS: GABAPENTIN 400 MG CAPSULE PO SCH (16:24)
[2019-02-11] MEDS: QUEtiapine FUMARATE 200 MG TABLET PO SCH (20:26)
[2019-02-12 00:26] VITALS: BP 124/80
[2019-02-12] MEDS: LEVOTHYROXINE SODIUM 50 MCG TABLET PO SCH (06:43)
[2019-02-12] MEDS: GABAPENTIN 400 MG CAPSULE PO SCH ×3 (08:16→16:44)
[2019-02-12] MEDS: FOLIC ACID 1 MG TABLET PO SCH (08:16)
[2019-02-12] MEDS: OMEPRAZOLE 20 MG CAPSULE PO SCH (08:16)
[2019-02-12] MEDS: FLUoxetine HCL 20 MG CAPSULE PO SCH (08:16)
[2019-02-12] MEDS: TOPIRAMATE 100 MG TABLET PO SCH ×2 (08:16→16:44)
[2019-02-12] MEDS: THIAMINE HCL 100 MG TABLET PO SCH (08:17)
[2019-02-12] MEDS: MULTIVITAMINS WITH MINERALS, THERAPEUTIC TABLET PO SCH (08:17)
[2019-02-12] MEDS: DOCUSATE SODIUM 100 MG CAPSULE PO SCH (08:17)
[2019-02-12] MEDS: AmLODIPine BESYLATE 5 MG TABLET PO SCH (08:17)
[2019-02-12] MEDS: NALTREXONE HCL 50 MG TABLET PO SCH (08:17)
[2019-02-12 08:51] VITALS: BP 100/63
[2019-02-12 16:54] VITALS: BP 112/79
[2019-02-12] MEDS: QUEtiapine FUMARATE 200 MG TABLET PO SCH (20:43)
[2019-02-13 06:30] VITALS: BP 108/68
[2019-02-13] MEDS: LEVOTHYROXINE SODIUM 50 MCG TABLET PO SCH (06:44)
[2019-02-13] MEDS: DOCUSATE SODIUM 100 MG CAPSULE PO SCH (09:14)
[2019-02-13] MEDS: GABAPENTIN 400 MG CAPSULE PO SCH ×3 (09:14→16:19)
[2019-02-13] MEDS: NALTREXONE HCL 50 MG TABLET PO SCH (09:14)
[2019-02-13] MEDS: MULTIVITAMINS WITH MINERALS, THERAPEUTIC TABLET PO SCH (09:14)
[2019-02-13] MEDS: OMEPRAZOLE 20 MG CAPSULE PO SCH (09:14)
[2019-02-13] MEDS: FLUoxetine HCL 20 MG CAPSULE PO SCH (09:15)
[2019-02-13] MEDS: TOPIRAMATE 100 MG TABLET PO SCH ×2 (09:15→16:19)
[2019-02-13 10:04] VITALS: BP 97/70
[2019-02-13] MEDS: AmLODIPine BESYLATE 5 MG TABLET PO SCH (10:21)
[2019-02-13 10:22] VITALS: BP 119/70
[2019-02-13 16:22] VITALS: BP 117/73
[2019-02-13] MEDS: LORazepam 2 MG TABLET PO PRN (17:43)
[2019-02-13] MEDS: QUEtiapine FUMARATE 200 MG TABLET PO SCH (20:17)
[2019-02-14 00:28] VITALS: BP 120/81
[2019-02-14] MEDS: QUEtiapine FUMARATE 100 MG TABLET PO PRN (02:12)
[2019-02-14] MEDS: LEVOTHYROXINE SODIUM 50 MCG TABLET PO SCH (06:20)
[2019-02-14] MEDS: DOCUSATE SODIUM 100 MG CAPSULE PO SCH (08:53)
[2019-02-14] MEDS: OMEPRAZOLE 20 MG CAPSULE PO SCH (08:53)
[2019-02-14] MEDS: FLUoxetine HCL 20 MG CAPSULE PO SCH (08:53)
[2019-02-14] MEDS: TOPIRAMATE 100 MG TABLET PO SCH ×2 (08:53→16:10)
[2019-02-14] MEDS: MULTIVITAMINS WITH MINERALS, THERAPEUTIC TABLET PO SCH (08:53)
[2019-02-14] MEDS: NALTREXONE HCL 50 MG TABLET PO SCH (08:53)
[2019-02-14] MEDS: GABAPENTIN 400 MG CAPSULE PO SCH ×3 (08:53→16:09)
[2019-02-14] MEDS: AmLODIPine BESYLATE 5 MG TABLET PO SCH (12:29)
[2019-02-14 13:32] VITALS: BP 112/77
[2019-02-14] MEDS: LORazepam 2 MG TABLET PO PRN (16:09)
[2019-02-14 16:33] VITALS: BP 117/75
[2019-02-14] MEDS: QUEtiapine FUMARATE 200 MG TABLET PO SCH (20:35)
[2019-02-14] MEDS: IBUPROFEN 600 MG TABLET PO PRN (23:00)
[2019-02-15 00:37] VITALS: BP 110/74
[2019-02-15] MEDS: QUEtiapine FUMARATE 100 MG TABLET PO PRN (01:52)
[2019-02-15] MEDS: ZOLPIDEM TARTRATE 10 MG TABLET PO PRN (01:52)
[2019-02-15] MEDS: LEVOTHYROXINE SODIUM 50 MCG TABLET PO SCH (07:01)
[2019-02-15 08:32] VITALS: BP 120/80
[2019-02-15] MEDS ORDERED: TOPI100T37 PO (08:37)
[2019-02-15] MEDS ORDERED: FLUO-191 PO (08:38)
[2019-02-15] MEDS ORDERED: NALT50TA6 PO (08:44)
[2019-02-15] MEDS ORDERED: QUET200T PO (08:44)
[2019-02-15] MEDS: TOPIRAMATE 100 MG TABLET PO SCH (08:46)
[2019-02-15] MEDS: GABAPENTIN 400 MG CAPSULE PO SCH ×2 (08:46→13:07)
[2019-02-15] MEDS: FLUoxetine HCL 20 MG CAPSULE PO SCH (08:46)
[2019-02-15] MEDS: DOCUSATE SODIUM 100 MG CAPSULE PO SCH (08:46)
[2019-02-15] MEDS: MULTIVITAMINS WITH MINERALS, THERAPEUTIC TABLET PO SCH (08:46)
[2019-02-15] MEDS: OMEPRAZOLE 20 MG CAPSULE PO SCH (08:46)
[2019-02-15] MEDS: AmLODIPine BESYLATE 5 MG TABLET PO SCH (08:47)
[2019-02-15] MEDS: NALTREXONE HCL 50 MG TABLET PO SCH (08:47)
[2019-02-15] MEDS ORDERED: GABA-533 PO (08:49)
== END 2019-02-15 13:20 | disposition home or self-care (01) | DRG 750 ==
LOC: B2S 02-02 00:30
PROVIDERS: ADMIT Psychiatry & Neurology Psychiatry; ATTEND Psychiatry & Neurology Psychiatry
DX: F25.1 Schizoaffective disorder, depressive type (principal); R45.851 Suicidal ideations; E03.9 Hypothyroidism, unspecified; I10 Essential (primary) hypertension; F41.9 Anxiety disorder, unspecified; E78.5 Hyperlipidemia, unspecified; F10.10 Alcohol abuse, uncomplicated; F17.210 Nicotine dependence, cigarettes, uncomplicated; Z81.8 Family history of other mental and behavioral disorders; Z82.0 Family history of epilepsy and other diseases of the nervous system; Z82.49 Family history of ischemic heart disease and other diseases of the circulatory system; Z88.5 Allergy status to narcotic agent; Z68.29 Body mass index [BMI] 29.0-29.9, adult
CPT/HCPCS: 83036; 83735; 84100; 84439; 84443; 85007; J3420

== ENCOUNTER 2020-03-20 10:13 | Inpatient (IN) | payer MEDICAID ==
[~2020-03-20] VITALS: Ht 175.3 cm; Wt 93.1 kg
[~2020-03-20 10:13] MED LIST changes: -AMLO-511 PO; +AMLO5TAB9 PO; +GABA-533 PO; +LAMO100 PO; +LURA40TA2 PO; +NALT50TA PO; -QUET200T PO; +TOPI100T37 PO; -TOPI25 PO
[2020-03-20] MEDS ORDERED: HALOPERIDOL 5 MG TABLET PO PRN (10:45)
[2020-03-20] MEDS ORDERED: TUBERCULIN, PURIFIED PROTEIN DERIVATIVE 5 TU/0.1 ML SYRINGE ID ONE (10:45)
[2020-03-20 11:10] VITALS: BP 165/116
[2020-03-20 12:17] VITALS: BP 142/100
[2020-03-20] MEDS ORDERED: MAG HYDROX/AL HYDROX/SIMETH ES 30 ML SUSPENSION UDCUP PO PRN (12:30)
[2020-03-20] MEDS ORDERED: HydrOXYzine PAMOATE 50 MG CAPSULE PO PRN (12:30)
[2020-03-20] MEDS ORDERED: LOPERAMIDE HCL 2 MG CAPSULE PO PRN (12:30)
[2020-03-20] MEDS ORDERED: GuaiFENesin/D-METHORPHAN [SUGAR-FREE] 200-20MG/10 ML SYRUP UDCUP PO PRN (12:30)
[2020-03-20] MEDS ORDERED: PROMETHAZINE HCL 25 MG TABLET PO PRN (12:30)
[2020-03-20] MEDS ORDERED: CloNIDine HCL 0.1 MG TABLET PO PRN (16:15)
[2020-03-20 16:19] VITALS: BP 142/89
[2020-03-20] MEDS: LamoTRIgine 100 MG TABLET PO SCH (16:25)
[2020-03-20] MEDS: GABAPENTIN 400 MG CAPSULE PO SCH ×2 (16:25→18:45)
[2020-03-20] MEDS: TOPIRAMATE 100 MG TABLET PO SCH (16:26)
[2020-03-20] MEDS: THIAMINE HCL 100 MG TABLET PO SCH (16:26)
[2020-03-20] MEDS: AmLODIPine BESYLATE 5 MG TABLET PO SCH (16:59)
[2020-03-20] MEDS: LORazepam 2 MG TABLET PO PRN (18:46)
[2020-03-20] MEDS: ZOLPIDEM TARTRATE 10 MG TABLET PO PRN (21:31)
[2020-03-21] MEDS ORDERED: -PHARMACY VACCINE NOTE- MISC ONE (03:15)
[2020-03-21 05:35] VITALS: BP 138/86
[2020-03-21] MEDS: LEVOTHYROXINE SODIUM 50 MCG TABLET PO SCH (06:33)
[2020-03-21] MEDS ORDERED: LURASIDONE HCL 40 MG TABLET PO SCH (07:00)
[2020-03-21 08:37] VITALS: BP 127/83
[2020-03-21] MEDS: TOPIRAMATE 100 MG TABLET PO SCH ×2 (08:38→16:10)
[2020-03-21] MEDS: AmLODIPine BESYLATE 5 MG TABLET PO SCH (08:38)
[2020-03-21] MEDS: MULTIVITAMINS WITH MINERALS, THERAPEUTIC TABLET PO SCH (08:38)
[2020-03-21] MEDS: NALTREXONE HCL 50 MG TABLET PO SCH (08:39)
[2020-03-21] MEDS: LamoTRIgine 100 MG TABLET PO SCH ×2 (08:39→16:09)
[2020-03-21] MEDS: GABAPENTIN 400 MG CAPSULE PO SCH ×3 (08:39→16:10)
[2020-03-21] MEDS: FLUoxetine HCL 20 MG CAPSULE PO SCH (08:39)
[2020-03-21] MEDS: FOLIC ACID 1 MG TABLET PO SCH (08:39)
[2020-03-21] MEDS: THIAMINE HCL 100 MG TABLET PO SCH ×2 (08:39→16:10)
[2020-03-21 08:58] LABS: CHOL/HDL RATIO 2.4 (3.9-5.7); CHOLESTEROL 177 mg/dL (131-200); FREE T4 (FREE THYROXINE) 0.96 ng/dL (0.76-1.46); HCG,QUANTITATIVE < 1 mIU/mL (0-6); HDL CHOLESTEROL 74 mg/dL (40-60); LDL CHOL (CALC.) 88 mg/dL (0-130); THYROID STIMULATING HORMONE 2.68 uIU/mL (0.36-3.74); TRIGLYCERIDES 74 mg/dL (15-150)
[2020-03-21 09:13] LABS: HEMOGLOBIN A1C 5.6 % (3.8-5.6)
[2020-03-21 16:28] VITALS: BP 134/76
[2020-03-21] MEDS: ZOLPIDEM TARTRATE 10 MG TABLET PO PRN (21:00)
[2020-03-22 05:32] VITALS: BP 111/74
[2020-03-22] MEDS: LEVOTHYROXINE SODIUM 50 MCG TABLET PO SCH (06:14)
[2020-03-22] MEDS ORDERED: LURASIDONE HCL 60 MG TABLET PO SCH (07:00)
[2020-03-22 08:17] VITALS: BP 124/78
[2020-03-22] MEDS: NALTREXONE HCL 50 MG TABLET PO SCH (08:32)
[2020-03-22] MEDS: FOLIC ACID 1 MG TABLET PO SCH (08:32)
[2020-03-22] MEDS: FLUoxetine HCL 20 MG CAPSULE PO SCH (08:32)
[2020-03-22] MEDS: TOPIRAMATE 100 MG TABLET PO SCH ×2 (08:32→16:12)
[2020-03-22] MEDS: LamoTRIgine 100 MG TABLET PO SCH ×2 (08:32→16:12)
[2020-03-22] MEDS: THIAMINE HCL 100 MG TABLET PO SCH ×2 (08:32→16:11)
[2020-03-22] MEDS: MULTIVITAMINS WITH MINERALS, THERAPEUTIC TABLET PO SCH (08:33)
[2020-03-22] MEDS: AmLODIPine BESYLATE 5 MG TABLET PO SCH (08:33)
[2020-03-22] MEDS: GABAPENTIN 400 MG CAPSULE PO SCH ×3 (08:33→16:12)
[2020-03-22] MEDS: ACETAMINOPHEN 325 MG TABLET PO PRN (14:39)
[2020-03-22 16:10] VITALS: BP 114/68
[2020-03-22] MEDS: LORazepam 2 MG TABLET PO PRN (18:01)
[2020-03-22] MEDS: ZOLPIDEM TARTRATE 10 MG TABLET PO PRN (20:53)
[2020-03-23 01:30] VITALS: BP 112/69
[2020-03-23] MEDS ORDERED: LURASIDONE HCL 80 MG TABLET PO SCH (07:00)
[2020-03-23] MEDS: LEVOTHYROXINE SODIUM 50 MCG TABLET PO SCH (07:00)
[2020-03-23 08:17] VITALS: BP 131/77
[2020-03-23 08:22] LABS: ALBUMIN 3.2 g/dL (3.4-5.0); BILIRUBIN,TOTAL 0.1 mg/dL (0.1-1.0); CALCIUM, TOTAL 8.7 mg/dL (8.8-10.5); CREATININE 1.05 mg/dL (0.60-1.30)
[2020-03-23] MEDS: NALTREXONE HCL 50 MG TABLET PO SCH (08:29)
[2020-03-23] MEDS: FLUoxetine HCL 20 MG CAPSULE PO SCH (08:29)
[2020-03-23] MEDS: AmLODIPine BESYLATE 5 MG TABLET PO SCH (08:29)
[2020-03-23] MEDS: TOPIRAMATE 100 MG TABLET PO SCH ×2 (08:30→16:32)
[2020-03-23] MEDS: LamoTRIgine 100 MG TABLET PO SCH ×2 (08:30→16:33)
[2020-03-23] MEDS: THIAMINE HCL 100 MG TABLET PO SCH ×2 (08:30→16:32)
[2020-03-23] MEDS: MULTIVITAMINS WITH MINERALS, THERAPEUTIC TABLET PO SCH (08:30)
[2020-03-23] MEDS: GABAPENTIN 400 MG CAPSULE PO SCH ×3 (08:30→16:33)
[2020-03-23] MEDS: FOLIC ACID 1 MG TABLET PO SCH (08:30)
[2020-03-23] MEDS: MAGNESIUM HYDROXIDE SUSPENSION 30 ML UDCUP PO PRN (08:37)
[2020-03-23 16:07] VITALS: BP 107/70
[2020-03-23] MEDS: ACETAMINOPHEN 325 MG TABLET PO PRN (19:06)
[2020-03-23] MEDS: ZOLPIDEM TARTRATE 10 MG TABLET PO PRN (20:02)
[2020-03-24 01:26] VITALS: BP 114/70
[2020-03-24] MEDS: LEVOTHYROXINE SODIUM 50 MCG TABLET PO SCH (06:50)
[2020-03-24] MEDS ORDERED: LURASIDONE HCL 40 MG TABLET PO SCH (07:00)
[2020-03-24] MEDS: LORazepam 2 MG TABLET PO PRN (07:56)
[2020-03-24] MEDS: FLUoxetine HCL 20 MG CAPSULE PO SCH (09:04)
[2020-03-24] MEDS: MULTIVITAMINS WITH MINERALS, THERAPEUTIC TABLET PO SCH (09:04)
[2020-03-24] MEDS: GABAPENTIN 400 MG CAPSULE PO SCH ×3 (09:04→16:52)
[2020-03-24] MEDS: FOLIC ACID 1 MG TABLET PO SCH (09:04)
[2020-03-24] MEDS: NALTREXONE HCL 50 MG TABLET PO SCH (09:04)
[2020-03-24] MEDS: THIAMINE HCL 100 MG TABLET PO SCH ×2 (09:04→16:52)
[2020-03-24] MEDS: LamoTRIgine 100 MG TABLET PO SCH ×2 (09:04→16:52)
[2020-03-24] MEDS: AmLODIPine BESYLATE 5 MG TABLET PO SCH (09:04)
[2020-03-24] MEDS: TOPIRAMATE 100 MG TABLET PO SCH ×2 (09:05→16:52)
[2020-03-24 09:36] VITALS: BP 122/76
[2020-03-24 16:05] VITALS: BP 101/69
[2020-03-24 17:48] VITALS: BP 106/72
[2020-03-24] MEDS: ACETAMINOPHEN 325 MG TABLET PO PRN (17:48)
[2020-03-24] MEDS: ZOLPIDEM TARTRATE 10 MG TABLET PO PRN (20:30)
[2020-03-25 00:46] VITALS: BP 126/75
[2020-03-25] MEDS: LEVOTHYROXINE SODIUM 50 MCG TABLET PO SCH (06:47)
[2020-03-25] MEDS: LURASIDONE HCL 60 MG TABLET PO SCH (06:47)
[2020-03-25] MEDS: NALTREXONE HCL 50 MG TABLET PO SCH (08:38)
[2020-03-25] MEDS: FOLIC ACID 1 MG TABLET PO SCH (08:39)
[2020-03-25] MEDS: TOPIRAMATE 100 MG TABLET PO SCH ×2 (08:39→16:30)
[2020-03-25] MEDS: GABAPENTIN 400 MG CAPSULE PO SCH ×3 (08:39→16:30)
[2020-03-25] MEDS: MULTIVITAMINS WITH MINERALS, THERAPEUTIC TABLET PO SCH (08:39)
[2020-03-25] MEDS: AmLODIPine BESYLATE 5 MG TABLET PO SCH (08:39)
[2020-03-25] MEDS: FLUoxetine HCL 20 MG CAPSULE PO SCH (08:39)
[2020-03-25] MEDS: THIAMINE HCL 100 MG TABLET PO SCH ×2 (08:39→16:29)
[2020-03-25] MEDS: LamoTRIgine 100 MG TABLET PO SCH ×2 (08:39→16:29)
[2020-03-25] MEDS: LORazepam 2 MG TABLET PO PRN ×2 (08:56→17:48)
[2020-03-25 10:06] VITALS: BP 124/73
[2020-03-25 16:21] VITALS: BP 115/75
[2020-03-25] MEDS: ZOLPIDEM TARTRATE 10 MG TABLET PO PRN (22:48)
[2020-03-26 02:15] VITALS: BP 112/78
[2020-03-26 03:19] VITALS: BP 112/80
[2020-03-26] MEDS: ACETAMINOPHEN 325 MG TABLET PO PRN ×2 (03:22→14:29)
[2020-03-26] MEDS: LEVOTHYROXINE SODIUM 50 MCG TABLET PO SCH (06:49)
[2020-03-26] MEDS: LURASIDONE HCL 60 MG TABLET PO SCH (06:50)
[2020-03-26 08:10] VITALS: BP 116/71
[2020-03-26] MEDS: NALTREXONE HCL 50 MG TABLET PO SCH (08:42)
[2020-03-26] MEDS: FLUoxetine HCL 20 MG CAPSULE PO SCH (08:42)
[2020-03-26] MEDS: AmLODIPine BESYLATE 5 MG TABLET PO SCH (08:42)
[2020-03-26] MEDS: GABAPENTIN 400 MG CAPSULE PO SCH ×3 (08:42→16:21)
[2020-03-26] MEDS: TOPIRAMATE 100 MG TABLET PO SCH ×2 (08:43→16:21)
[2020-03-26] MEDS: LamoTRIgine 100 MG TABLET PO SCH ×2 (08:43→16:21)
[2020-03-26] MEDS: THIAMINE HCL 100 MG TABLET PO SCH ×2 (08:43→16:21)
[2020-03-26] MEDS: FOLIC ACID 1 MG TABLET PO SCH (08:43)
[2020-03-26] MEDS: MULTIVITAMINS WITH MINERALS, THERAPEUTIC TABLET PO SCH (08:43)
[2020-03-26] MEDS: LORazepam 2 MG TABLET PO PRN (14:28)
[2020-03-26 14:29] VITALS: BP 118/74
[2020-03-26 16:00] VITALS: BP 11/73
[2020-03-26] MEDS: MAGNESIUM HYDROXIDE SUSPENSION 30 ML UDCUP PO PRN (16:21)
[2020-03-26] MEDS: ZOLPIDEM TARTRATE 10 MG TABLET PO PRN (20:30)
[2020-03-27 00:54] VITALS: BP 121/80
[2020-03-27] MEDS: LEVOTHYROXINE SODIUM 50 MCG TABLET PO SCH (06:27)
[2020-03-27] MEDS: LURASIDONE HCL 60 MG TABLET PO SCH (06:28)
[2020-03-27 08:26] VITALS: BP 131/76
[2020-03-27] MEDS: LamoTRIgine 100 MG TABLET PO SCH (08:31)
[2020-03-27] MEDS: FLUoxetine HCL 20 MG CAPSULE PO SCH (08:31)
[2020-03-27] MEDS: THIAMINE HCL 100 MG TABLET PO SCH (08:32)
[2020-03-27] MEDS: MULTIVITAMINS WITH MINERALS, THERAPEUTIC TABLET PO SCH (08:32)
[2020-03-27] MEDS: AmLODIPine BESYLATE 5 MG TABLET PO SCH (08:32)
[2020-03-27] MEDS: FOLIC ACID 1 MG TABLET PO SCH (08:32)
[2020-03-27] MEDS: NALTREXONE HCL 50 MG TABLET PO SCH (08:32)
[2020-03-27] MEDS: GABAPENTIN 400 MG CAPSULE PO SCH (08:33)
[2020-03-27] MEDS: TOPIRAMATE 100 MG TABLET PO SCH (08:34)
[2020-03-27] MEDS: ACETAMINOPHEN 325 MG TABLET PO PRN (08:35)
[2020-03-27] MEDS ORDERED: LURA60TA PO (09:47)
[2020-03-27] MEDS ORDERED: FLUO-191 PO (09:47)
[2020-03-27] MEDS ORDERED: LAMO100 PO (09:47)
[2020-03-27] MEDS ORDERED: THIA100T67 PO (09:48)
== END 2020-03-27 10:00 | disposition home or self-care (01) | DRG 750 ==
LOC: B2S 10:13
PROVIDERS: ADMIT Psychiatry & Neurology Psychiatry; ATTEND Psychiatry & Neurology Psychiatry
DX: F25.0 Schizoaffective disorder, bipolar type (principal); Z91.19 Patient's noncompliance with other medical treatment and regimen; E03.9 Hypothyroidism, unspecified; I10 Essential (primary) hypertension; F12.90 Cannabis use, unspecified, uncomplicated; Z88.6 Allergy status to analgesic agent; I25.2 Old myocardial infarction; Z87.820 Personal history of traumatic brain injury; Z91.5 Personal history of self-harm
CPT/HCPCS: 83036; 84436; 84439; 84443; 86592; 87081